=== PATIENT | female | born 1985 | race Caucasian/White ===

== ENCOUNTER 2018-12-31 07:31 | Inpatient (IN) | payer MEDICAID ==
[~2018-12-31 07:31] MED LIST: OXYTOCIN 30 UNITS/LR 500 ML BAG IV
[2018-12-31] MEDS ORDERED: LACTATED RINGER'S 1,000 ML IV (07:51)
[2018-12-31] MEDS ORDERED: CARBOPROST 250 MCG INJ IM ×2 (08:00→12:00)
[2018-12-31] MEDS ORDERED: METHYLERGONOVINE 0.2 MG INJ IM ×2 (08:00→12:00)
[2018-12-31] MEDS ORDERED: OXYTOCIN 30 UNITS/LR 500 ML IV ×2 (08:00→12:00)
[2018-12-31] MEDS ORDERED: MISOPROSTOL 200 MCG TAB PR ×2 (08:00→12:00)
[2018-12-31 08:49] LABS: ADD MAN DIFF? NO
[2018-12-31 08:50] LABS: BASOPHILS % 0.2 % (0.0-2.0); EOSINOPHILS % 0.2 % (0.0-7.0); HEMATOCRIT 35.2 % (37.0-47.0); HEMOGLOBIN 11.9 g/dl (12.0-16.0); LYMPHOCYTES # 0.9 10^3/ul (0.8-2.9); LYMPHOCYTES % 9.9 % (15.0-51.0); MEAN CORPUSCULAR HEMOGLOBIN 29.8 pg (29.0-33.0); MEAN CORPUSCULAR HGB CONC 33.8 g/dl (32.0-37.0); MEAN CORPUSCULAR VOLUME 88.2 fl (82.0-101.0); MONOCYTE # 0.5 10^3/ul (0.3-0.9); MONOCYTES % 5.6 % (0.0-11.0); NEUTROPHIL # 7.4 10^3/ul (1.6-7.5); NEUTROPHILS % 83.6 % (39.0-77.0); PLATELET COUNT 156 10^3/UL (140-415); RED BLOOD COUNT 3.99 10^6/ul (4.20-5.40); RED CELL DISTRIBUTION WIDTH 12.9 % (11.5-14.5)
[2018-12-31 08:50] LABS: WHITE BLOOD COUNT 8.9 10^3/ul (4.8-10.8)
[2018-12-31 09:23] LABS: INR 0.88; PT RATIO 0.9
[2018-12-31 09:24] LABS: PARTIAL THROMBOPLASTIN TIME 27.6 Sec (23.0-35.0)
[2018-12-31 09:54] LABS: HEPATITIS B SURFACE ANTIGEN NEGATIVE (NEGATIVE)
[2018-12-31] MEDS ORDERED: morphine SULFATE/PF (10 MG/10 ML) INJ (10:12)
[2018-12-31] MEDS ORDERED: ONDANSETRON 4 MG INJ (10:13)
[2018-12-31] MEDS ORDERED: OXYTOCIN 10 UNIT INJ (10:13)
[2018-12-31 11:23] LABS: CBV Oxygen Sat 62.9 mmHG; Cord Blood Venous AADO2 47.8 mmHg; Cord Blood Venous pO2 35.1 mmHG (15.0-45.0); MODE ROOM AIR; Site CORD
[2018-12-31 11:26] LABS: CBV Base Excess -12.1 mmol/L; CBV COHb 0.2 %; CBV Total Hemglobin 14.7 g/dl; Fraction OxyHgb Cord Venous 3.5 %; MetHgb Cord Venous 1.9 %; Sample Type CBA
[2018-12-31] MEDS ORDERED: METHYLERGONOVINE 0.2 MG TAB PO (12:00)
[2018-12-31] MEDS: OXYTOCIN 30 UNITS/LR 500 ML IV ×3 (13:36→16:43)
[2018-12-31] MEDS ORDERED: NALOXONE (0.4 MG/ML) INJ IV (14:00)
[2018-12-31] MEDS ORDERED: morphine 2 MG INJ IV (14:00)
[2018-12-31] MEDS ORDERED: DIPHENHYDRAMINE 50 MG INJ IV (14:00)
[2018-12-31] MEDS ORDERED: ONDANSETRON 4 MG INJ IV (14:00)
[2018-12-31] MEDS ORDERED: KETOROLAC 30 MG INJ (14:02)
[2018-12-31] MEDS: KETOROLAC 30 MG INJ IV (14:04)
[2018-12-31 15:02] LABS: RAPID PLASMA REAGIN NONREACTIVE (NR)
[2018-12-31] MEDS: [UNRECOGNIZED DRUG - OTHER] XX (16:42)
[2018-12-31] MEDS: CEFAZOLIN 2 GM/50 ML (PMX) 50 ML IVPB (16:43)
[2018-12-31] MEDS: LACTATED RINGER'S 1,000 ML IV ×2 (16:43→19:51)
[2018-12-31] MEDS: SENNA/DOCUSATE NA (8.6MG/50MG) TAB PO (21:44)
[2019-01-01] MEDS: KETOROLAC 30 MG INJ IV (01:44)
[2019-01-01] MEDS: LANOLIN HPA 1 PKT TOP (01:45)
[2019-01-01] MEDS: LACTATED RINGER'S 1,000 ML IV ×2 (02:01→10:24)
[2019-01-01 07:49] LABS: AADO2 Cord Arterial 47.8 mmHg; Arterial Cord Blood pCO2 52.5 mmHG (25-50); CBA Base Excess -13.8 mmol/L; CBA COHb 0.9 %; CBA Oxygen Sat 62.9 mmHG; CBA Total Hemglobin 15.8 g/dl; Cord Blood Arterial pO2 35.1 mmHG (15.0-45.0); Fraction OxyHgb Cord Arterial 61.7 %; MODE ROOM AIR; Sample Type CBV; Site CORD
[2019-01-01 08:19] LABS: ADD MAN DIFF? NO
[2019-01-01 08:24] LABS: BASOPHILS % 0.2 % (0.0-2.0); HEMOGLOBIN 10.6 g/dl (12.0-16.0); LYMPHOCYTES # 0.8 10^3/ul (0.8-2.9); LYMPHOCYTES % 6.7 % (15.0-51.0); MEAN CORPUSCULAR HEMOGLOBIN 30.4 pg (29.0-33.0); MEAN CORPUSCULAR HGB CONC 34.2 g/dl (32.0-37.0); MEAN CORPUSCULAR VOLUME 88.8 fl (82.0-101.0); MEAN PLATELET VOLUME 12.5 fl (7.4-10.4); MONOCYTE # 0.5 10^3/ul (0.3-0.9); MONOCYTES % 4.3 % (0.0-11.0); NEUTROPHIL # 10.6 10^3/ul (1.6-7.5); NEUTROPHILS % 88.2 % (39.0-77.0); PLATELET COUNT 135 10^3/UL (140-415); RED BLOOD COUNT 3.49 10^6/ul (4.20-5.40); RED CELL DISTRIBUTION WIDTH 13.2 % (11.5-14.5)
[2019-01-01 08:42] LABS: ANION GAP 6 (5-13); BLOOD UREA NITROGEN 9 mg/dl (7-20); CALCIUM 7.8 mg/dl (8.4-10.2); CARBON DIOXIDE 23 mmol/L (21-31); CHLORIDE 104 mmol/L (97-110); CREATININE 0.52 mg/dl (0.44-1.00); Estimated GFR > 60 mL/min (>60); GLUCOSE 56 mg/dl (70-220); SODIUM 133 mmol/L (135-144)
[2019-01-01] MEDS: SENNA/DOCUSATE NA (8.6MG/50MG) TAB PO ×2 (10:04→20:33)
[2019-01-01 11:10] LABS: ADD UMIC NO; UR ASCORBIC ACID NEGATIVE (NEGATIVE); UR BACTERIA FEW /HPF (NONE SEEN); UR BILIRUBIN (Dip) NEGATIVE (NEGATIVE); UR BLOOD (Dip) NEGATIVE (NEGATIVE); UR CLARITY SLIGHTLY CLOUDY (CLEAR); UR COLOR YELLOW (YELLOW); UR GLUCOSE (Dip) NEGATIVE (NEGATIVE); UR KETONES (Dip) 2+ mg/dL (NEGATIVE); UR LEUKOCYTE ESTERASE (Dip) NEGATIVE Leu/ul (NEGATIVE); UR MUCUS MANY /HPF (NONE SEEN); UR NITRITE (Dip) NEGATIVE (NEGATIVE); UR RBC 5 /HPF (0-5); UR SPECIFIC GRAVITY (Dip) 1.016 (1.003-1.030); UR SQUAMOUS EPITHELIAL CELL FEW /HPF (FEW); UR TOTAL PROTEIN (Dip) NEGATIVE (NEGATIVE); UR UROBILINOGEN (Dip) NEGATIVE (NEGATIVE); UR WBC 6 /HPF (0-5)
[2019-01-01] MEDS: HYDROCODONE/APAP (5/325) TAB PO ×2 (12:01→17:08)
[2019-01-01] MEDS: GENTAMICIN IN NACL, ISO-OSM 50 ML IVPB ×2 (13:36→23:42)
[2019-01-01] MEDS: CLINDAMYCIN 900 MG/D5W (PMX) 50 ML IVPB ×2 (14:27→22:26)
[2019-01-01] MEDS: POTASSIUM CHLORIDE 20 MEQ in LACTATED RINGER'S 1,000 ML IV (18:34)
[2019-01-01] MEDS: IBUPROFEN 800 MG TAB PO (20:33)
[2019-01-02] MEDS: POTASSIUM CHLORIDE 20 MEQ in LACTATED RINGER'S 1,000 ML IV ×3 (01:05→16:21)
[2019-01-02] MEDS: CLINDAMYCIN 900 MG/D5W (PMX) 50 ML IVPB ×3 (06:06→21:26)
[2019-01-02] MEDS: IBUPROFEN 800 MG TAB PO (06:06)
[2019-01-02] MEDS: GENTAMICIN IN NACL, ISO-OSM 50 ML IVPB ×2 (07:55→16:21)
[2019-01-02] MEDS: SENNA/DOCUSATE NA (8.6MG/50MG) TAB PO ×3 (09:00→21:26)
[2019-01-02 09:02] LABS: ANION GAP 8 (5-13); BLOOD UREA NITROGEN 7 mg/dl (7-20); CALCIUM 7.8 mg/dl (8.4-10.2); CARBON DIOXIDE 24 mmol/L (21-31); CHLORIDE 107 mmol/L (97-110); CREATININE 0.42 mg/dl (0.44-1.00); Estimated GFR > 60 mL/min (>60); GLUCOSE 83 mg/dl (70-220); POTASSIUM 3.2 mmol/L (3.5-5.1); SODIUM 139 mmol/L (135-144)
[2019-01-02] MEDS: HYDROCODONE/APAP (5/325) TAB PO (18:27)
[2019-01-03] MEDS: GENTAMICIN IN NACL, ISO-OSM 50 ML IVPB ×2 (00:25→08:05)
[2019-01-03] MEDS: POTASSIUM CHLORIDE 20 MEQ in LACTATED RINGER'S 1,000 ML IV ×2 (01:26→09:25)
[2019-01-03] MEDS: HYDROCODONE/APAP (5/325) TAB PO ×2 (01:31→13:13)
[2019-01-03] MEDS: CLINDAMYCIN 900 MG/D5W (PMX) 50 ML IVPB (06:32)
[2019-01-03] MEDS: MEASLES,MUMPS,RUBELLA VACCINE INJ SC* (09:00)
[2019-01-03] MEDS: SENNA/DOCUSATE NA (8.6MG/50MG) TAB PO (09:00)
[2019-01-03] MEDS: DIPHTH/TET/ACEL PERTUSS (ADULT) 0.5 ML VIAL IM* (11:36)
== END 2019-01-03 14:30 | disposition home or self-care (01) | DRG 785 ==
LOC: L-D 07:31 → PP1 15:02
PROVIDERS: Obstetrics & Gynecology
PROC: 10D00Z1 Extraction of Products of Conception, Low, Open Approach (ICD-10-PCS; principal; 2018-12-31 10:30)
PROC: 0UB70ZZ Excision of Bilateral Fallopian Tubes, Open Approach (ICD-10-PCS; 2018-12-31 10:30)
PROC: 0DNU0ZZ Release Omentum, Open Approach (ICD-10-PCS; 2018-12-31 10:30)
PROC: 0UN90ZZ Release Uterus, Open Approach (ICD-10-PCS; 2018-12-31 10:30)
DX: O34.219 Maternal care for unspecified type scar from previous cesarean delivery (principal); O99.89 Other specified diseases and conditions complicating pregnancy, childbirth and the puerperium; N73.6 Female pelvic peritoneal adhesions (postinfective); G89.18 Other acute postprocedural pain; Z3A.39 39 weeks gestation of pregnancy; Z37.0 Single live birth; Z30.2 Encounter for sterilization; Z23 Encounter for immunization
CPT/HCPCS: 36600; 80048; 81001; 81003; 82803; 85025; 85610; 85730; 86592; 86850; 86900; 86901; 87040; 87086; 87340; 88302; 90715; 99464